=== PATIENT | female | born 2000 | race African-American/Black ===

== ENCOUNTER 2021-02-11 09:55 | Emergency (ER) | payer OTHER ==
[~2021-02-11] VITALS: Ht 157.5 cm; Wt 61.5 kg
[2021-02-11 11:17] LABS: BASOPHILS % 0.9 % (0.0-2.0); EOSINOPHILS % 1.8 % (0.0-5.0); HEMATOCRIT. 23.6 % (36.0-48.0); HEMOGLOBIN. 7.3 g/dL (12.0-16.0); LYMPHOCYTES % 17.5 % (20.0-50.0); MEAN PLATELET VOLUME 7.5 fl (7.4-10.4); MONOCYTES % 7.2 % (2.0-8.0); NEUTROPHILS % 72.6 % (40.0-76.0); PLATELET 574 x1000/uL (130-400); RED BLOOD CELL COUNT 3.47 mill/uL (4.2-5.4); RED CELL DISTRIBUTION WIDTH 25.6 % (11.6-14.6)
[2021-02-11 11:22] LABS: CHLORIDE 110 mEq/L (98-107)
[2021-02-11 11:35] LABS: B-HCG QUANTITATIVE < 1 mIU/mL (<3)
[2021-02-11] MEDS ORDERED: KETOROLAC 30MG/ML VIAL IV ONE (12:15)
[2021-02-11 12:24] LABS: PLATELET ESTIMATE INCREASED
[2021-02-11] MEDS ORDERED: SODIUM CHLORIDE 0.45% 1,000 ML IV SCH (14:30)
[2021-02-11] MEDS ORDERED: IBUPROFEN 400MG TABLET PO ONE (17:15)
[2021-02-11] MEDS ORDERED: ACETAMINOPHEN 325MG TABLET PO ONE (17:15)
[2021-02-11 18:00] VITALS: BP 118/74
== END 2021-02-11 21:35 | disposition admitted as inpatient to this hospital (09) ==
LOC: ER 09:55
DX: R55 Syncope and collapse (principal); D25.9 Leiomyoma of uterus, unspecified; Z20.822 Contact with and (suspected) exposure to COVID-19
CPT/HCPCS: 36415; 76830; 76856; 80053; 81025; 82962; 84702; 85025; 86850; 86900; 86901; 86920; 87426; 96361; 96374; 99291; J1885; J7040; Z7610; P9016

== ENCOUNTER 2023-12-20 03:56 | Emergency (ER) | payer MEDICAID ==
[~2023-12-20] VITALS: Ht 157.5 cm; Wt 66.0 kg
[2023-12-20 04:13] VITALS: O2SAT 99
[2023-12-20 04:20] LABS: EOSINOPHILS % 3.6 % (0.0-5.0); HEMATOCRIT. 39.6 % (36.0-48.0); HEMOGLOBIN. 13.2 g/dL (12.0-16.0); LYMPHOCYTES % 26.3 % (20.0-50.0); MEAN CORPUSCULAR HEMOGLOBIN 32.7 pg (28.0-32.0); MEAN CORPUSCULAR HGB CONC 33.4 g/dL (31.0-37.0); MEAN CORPUSCULAR VOLUME 97.8 fL (81.0-99.0); MEAN PLATELET VOLUME 6.9 fl (7.4-10.4); MONOCYTES % 9.8 % (2.0-8.0); NEUTROPHILS % 59.3 % (40.0-76.0); PLATELET 380 x1000/uL (130-400); RED BLOOD CELL COUNT 4.05 mill/uL (4.2-5.4); RED CELL DISTRIBUTION WIDTH 13.9 % (11.6-14.6); WHITE BLOOD COUNT 4.6 x1000/uL (4.5-11.0)
[2023-12-20 04:27] LABS: CLARITY URINE CLOUDY (CLEAR); COLOR URINE YELLOW (YELLOW); GLUCOSE URINE NEGATIVE (NEGATIVE); KETONES URINE NEGATIVE (NEGATIVE); LEUKOCYTE ESTERASE URINE NEGATIVE (NEGATIVE); NITRITE URINE NEGATIVE (NEGATIVE); OCCULT BLOOD URINE NEGATIVE (NEGATIVE); PROTEIN URINE NEGATIVE (NEGATIVE); SPECIFIC GRAVITY URINE 1.019 (1.005-1.030); UROBILINOGEN URINE 0.2 E.U./dL (0.2-1.0)
[2023-12-20 04:30] LABS: CHLORIDE 108 mEq/L (98-107); POTASSIUM 4.1 mEq/L (3.5-5.1); SODIUM 141 mEq/L (136-145)
[2023-12-20 04:31] LABS: CALCIUM 9.7 mg/dL (8.7-10.4); CARBON DIOXIDE 27 mEq/L (21-32)
[2023-12-20 04:36] LABS: CREATININE 0.7 mg/dL (0.6-1.0); GLUCOSE 90 mg/dL (70-105); UREA NITROGEN BLOOD 7 mg/dL (9-23)
[2023-12-20 04:38] LABS: ALANINE AMINOTRANSFERASE 55 IU/L (10-49); ALBUMIN 4.9 g/dL (3.2-4.8); ASPARTATE AMINOTRANSFERASE 140 IU/L (<34); BILIRUBIN DIRECT 0.2 mg/dL (<=3.0); BILIRUBIN TOTAL 0.4 mg/dL (0.1-1.0); PROTEIN TOTAL 7.6 g/dL (6.0-8.3)
[2023-12-20 04:45] LABS: BACTERIA URINE 1+; RBC URINE 0-2 /hpf (0-2); SQUAMOUS EPITHELIAL CELL URINE 2+ /lpf (RARE/1+); WBC URINE 0-2 /hpf (0-2)
[2023-12-20] MEDS: HYDROCODONE/ACETAMINOPHEN 5/325MG TABLET PO STA (06:33)
[2023-12-20] MEDS ORDERED: MORPHINE SULFATE 4 MG/ML INJ (FOR IV/IM USE) IV ONE (08:15)
[2023-12-20] MEDS: MORPHINE SULFATE 4 MG/ML INJ (FOR IV/IM USE) IV NR (11:40)
[2023-12-20 12:10] VITALS: TEMP 98.1
[2023-12-20] MEDS: IOHEXOL-300 100 ML BOTTLE ONE (12:15)
[2023-12-20] MEDS: SODIUM CHLORIDE 0.9% 1,000 ML IV ONE (12:17)
[2023-12-20] MEDS: ONDANSETRON HCL 4MG/2ML INJ IV STA (12:17)
[2023-12-20 13:06] VITALS: BP 117/80; PULSE 90; RESP 14
[2023-12-20] MEDS ORDERED: IOHEXOL-300 100 ML BOTTLE ONE (14:59)
== END 2023-12-20 13:08 | disposition home or self-care (01) ==
LOC: ER 03:56
DX: N83.201 Unspecified ovarian cyst, right side (principal); Z91.010 Allergy to peanuts; Z98.890 Other specified postprocedural states
CPT/HCPCS: 80076; 80048; 81003; 81025; 83690; 85025; 36415; 74177; 76830; 76856; 96374; 99285; Q9967; J2405; J2270; J7030; Z7610 ×3

== ENCOUNTER 2023-12-27 00:54 | Emergency (ER) | payer MEDICAID ==
[2023-12-27 01:02] VITALS: PULSE 61
== END 2023-12-27 01:10 | disposition left against medical advice (07) ==
LOC: ER 00:54
DX: R10.9 Unspecified abdominal pain (principal); Z53.21 Procedure and treatment not carried out due to patient leaving prior to being seen by health care provider